=== PATIENT | male | born 2000 | race Caucasian/White ===

== ENCOUNTER 2025-04-16 14:56 | Emergency (ER) | payer SELFPAY ==
[2025-04-16 15:30] LABS: #Basophils Less than 0.03 10x3/uL (0.0-0.2); #Eosinophils 0.14 10x3/uL (0.0-0.5); #Monocytes 0.44 10x3/uL (0.0-1.1); #Neutrophils 2.47 10x3/uL (1.5-8.4); %Basophils 0.2 % (0.0-2.0); %Eosinophils 2.8 % (0.0-6.0); %Lymphocytes 39.9 % (18.0-47.0); %Monocytes 8.6 % (0.0-10.0); %Neutrophils 48.5 % (40.0-75.0); Hematocrit 37.1 % (38.8-50.0); Hemoglobin 12.1 g/dL (13.5-17.5); Mean Corpuscular Hemoglobin 28.0 pg (27.0-33.0); Mean Corpuscular Volume 85.9 fL (81.2-95.1); Platelet Count 299 10x3/uL (150-450); Red Blood Cell (RBC) Count 4.32 10x6/uL (4.32-5.72); White Blood Cell (WBC) Count 5.09 10x3/uL (3.5-10.5)
[2025-04-16 15:38] LABS: Cocaine Metabolite Screen Negative (Negative); THC/Cannabinoid Screen PRELIM POSITIVE (Negative); Tricyclic Screen Negative (Negative)
[2025-04-16 16:00] LABS: ALT (SGPT) 94 U/L (Less than 45); AST (SGOT) 43 U/L (11-34); Acetaminophen Less than 10 mcg/mL (Less than 10); Albumin 4.3 g/dL (3.1-4.5); Alkaline Phosphatase 87 U/L (40-110); Anion Gap 12 mmol/L (10-20); BUN (Urea Nitrogen) 11 mg/dL (8.9-20.6); Bilirubin, Total 0.4 mg/dL (0.3-1.2); Calc. Creatinine Clearance 0 mL/min (70-130); Calcium 9.2 mg/dL (7.8-10.44); Carbon Dioxide 28 mmol/L (22-29); Chloride 105 mmol/L (98-107); Globulin 3.3 g/dL (2.4-3.5); Glucose 94 mg/dL (70-105); Potassium 3.9 mmol/L (3.5-5.1); Salicylate Less than 8.0 mg/dL (Less than 8.0); Sodium 141 mmol/L (136-145)
== END 2025-04-16 22:12 ==
LOC: CSHERS 14:56
DX: R45.851 Suicidal ideations (principal); F17.290 Nicotine dependence, other tobacco product, uncomplicated
CPT/HCPCS: 36415; 80053; 80306; 80307; 84443; 85025; 93005; 99285

== ENCOUNTER 2025-07-04 01:58 | Emergency (ER) | payer MEDICAID, SELFPAY ==
[2025-07-04 02:35] LABS: #Basophils Less than 0.03 10x3/uL (0.0-0.2); #Eosinophils 0.08 10x3/uL (0.0-0.5); #Monocytes 0.87 10x3/uL (0.0-1.1); #Neutrophils 5.24 10x3/uL (1.5-8.4); %Basophils 0.1 % (0.0-2.0); %Eosinophils 0.8 % (0.0-6.0); %Lymphocytes 36.7 % (18.0-47.0); %Monocytes 8.9 % (0.0-10.0); %Neutrophils 53.3 % (40.0-75.0); Hematocrit 41.3 % (38.8-50.0); Hemoglobin 13.8 g/dL (13.5-17.5); Mean Corpuscular Hemoglobin 28.8 pg (27.0-33.0); Mean Corpuscular Volume 86.2 fL (81.2-95.1); Platelet Count 240 10x3/uL (150-450); Red Blood Cell (RBC) Count 4.79 10x6/uL (4.32-5.72); White Blood Cell (WBC) Count 9.82 10x3/uL (3.5-10.5)
[2025-07-04 02:50] LABS: ALT (SGPT) 51 U/L (Less than 45); AST (SGOT) 37 U/L (11-34); Albumin 4.5 g/dL (3.1-4.5); Alkaline Phosphatase 96 U/L (40-110); Anion Gap 14 mmol/L (10-20); BUN (Urea Nitrogen) 8 mg/dL (8.9-20.6); Bilirubin, Total 0.4 mg/dL (0.3-1.2); Calc. Creatinine Clearance 0 mL/min (70-130); Calcium 9.4 mg/dL (7.8-10.44); Carbon Dioxide 20 mmol/L (22-29); Chloride 107 mmol/L (98-107); Globulin 3.3 g/dL (2.4-3.5); Glucose 117 mg/dL (70-105); Potassium 4.2 mmol/L (3.5-5.1); Sodium 137 mmol/L (136-145)
[2025-07-04 02:51] LABS: Acetaminophen Less than 10 mcg/mL (Less than 10); Magnesium 1.9 mg/dL (1.6-2.6); Salicylate Less than 8.0 mg/dL (Less than 8.0)
== END 2025-07-04 03:44 | disposition home or self-care (01) ==
LOC: CSHERS 01:58
DX: F11.23 Opioid dependence with withdrawal (principal); F10.239 Alcohol dependence with withdrawal, unspecified; F17.290 Nicotine dependence, other tobacco product, uncomplicated
CPT/HCPCS: 80053; 80307; 83735; 85025; 93005; 96374; J2060

== ENCOUNTER 2025-07-05 10:55 | Emergency (ER) | payer MEDICAID, OTHER ==
[2025-07-05 11:46] LABS: #Basophils Less than 0.03 10x3/uL (0.0-0.2); #Eosinophils 0.06 10x3/uL (0.0-0.5); #Monocytes 0.53 10x3/uL (0.0-1.1); #Neutrophils 2.45 10x3/uL (1.5-8.4); %Basophils 0.2 % (0.0-2.0); %Eosinophils 1.2 % (0.0-6.0); %Lymphocytes 38.2 % (18.0-47.0); %Monocytes 10.7 % (0.0-10.0); %Neutrophils 49.5 % (40.0-75.0); Hematocrit 41.0 % (38.8-50.0); Hemoglobin 13.2 g/dL (13.5-17.5); Mean Corpuscular Hemoglobin 28.4 pg (27.0-33.0); Mean Corpuscular Volume 88.4 fL (81.2-95.1); Platelet Count 215 10x3/uL (150-450); Red Blood Cell (RBC) Count 4.64 10x6/uL (4.32-5.72); White Blood Cell (WBC) Count 4.95 10x3/uL (3.5-10.5)
[2025-07-05 12:03] LABS: Acetaminophen Less than 10 mcg/mL (Less than 10); Magnesium 1.8 mg/dL (1.6-2.6); Salicylate Less than 8.0 mg/dL (Less than 8.0)
[2025-07-05 12:04] LABS: ALT (SGPT) 47 U/L (Less than 45); AST (SGOT) 27 U/L (11-34); Albumin 4.2 g/dL (3.1-4.5); Alkaline Phosphatase 100 U/L (40-110); Anion Gap 12 mmol/L (10-20); BUN (Urea Nitrogen) 11 mg/dL (8.9-20.6); Bilirubin, Total 0.2 mg/dL (0.3-1.2); Calc. Creatinine Clearance 0 mL/min (70-130); Calcium 9.2 mg/dL (7.8-10.44); Carbon Dioxide 23 mmol/L (22-29); Chloride 107 mmol/L (98-107); Globulin 3.0 g/dL (2.4-3.5); Glucose 92 mg/dL (70-105); Potassium 3.8 mmol/L (3.5-5.1); Sodium 138 mmol/L (136-145)
[2025-07-05 13:11] LABS: Cocaine Metabolite Screen PRELIM POSITIVE (Negative); THC/Cannabinoid Screen PRELIM POSITIVE (Negative); Tricyclic Screen PRELIM POSITIVE (Negative)
== END 2025-07-05 13:39 | disposition home or self-care (01) ==
LOC: CSHERS 10:55
DX: F10.239 Alcohol dependence with withdrawal, unspecified (principal); F19.90 Other psychoactive substance use, unspecified, uncomplicated; F17.210 Nicotine dependence, cigarettes, uncomplicated; F17.290 Nicotine dependence, other tobacco product, uncomplicated
CPT/HCPCS: 36415; 80053; 80306; 80307; 83605; 83735; 85025; 96374; 96376; J2060